=== PATIENT | female | born 1960 | race Caucasian/White ===

== ENCOUNTER 2019-08-01 06:27 | Day surgery (SDC) | payer OTHER ==
[~2019-08-01] VITALS: Ht 149.9 cm; Wt 61.7 kg
[2019-08-01] MEDS ORDERED: fentaNYL 0.05 MG/ML VIAL ONE (07:50)
[2019-08-01] MEDS ORDERED: MIDAZOLAM 2 MG/2 ML VIAL ONE (07:51)
[2019-08-01] MEDS ORDERED: LIDOCAINE 2% 100 MG/5 ML UJET TP ONE (07:53)
[2019-08-01] MEDS ORDERED: LIDOCAINE VISCOUS 2% 20 ML UDC ONE (07:55)
== END 2019-08-01 09:30 | disposition home or self-care (01) ==
LOC: MDS 06:27 → MMU 07:15 → MDS 09:30
PROVIDERS: ATTEND Internal Medicine Gastroenterology
DX: Z12.11 Encounter for screening for malignant neoplasm of colon (principal); R13.10 Dysphagia, unspecified; K21.9 Gastro-esophageal reflux disease without esophagitis; E78.00 Pure hypercholesterolemia, unspecified; M19.90 Unspecified osteoarthritis, unspecified site; Z90.710 Acquired absence of both cervix and uterus; Z79.899 Other long term (current) drug therapy
CPT/HCPCS: 43239; 88305; G0121; J2250; J3010; J7030

== ENCOUNTER 2019-10-31 07:22 | Day surgery (SDC) | payer OTHER, SELFPAY ==
[~2019-10-31] VITALS: Ht 149.9 cm; Wt 63.0 kg
[2019-10-31] MEDS ORDERED: fentaNYL 0.05 MG/ML VIAL ONE (08:59)
[2019-10-31] MEDS ORDERED: MIDAZOLAM 2 MG/2 ML VIAL ONE (09:00)
[2019-10-31] MEDS ORDERED: LIDOCAINE 2% 100 MG/5 ML UJET TP ONE (09:00)
[2019-10-31] MEDS ORDERED: fentaNYL 0.05 MG/ML VIAL IVP ONE (11:00)
[2019-10-31] MEDS ORDERED: MIDAZOLAM 2 MG/2 ML VIAL IVP ONE (11:00)
== END 2019-10-31 10:35 | disposition home or self-care (01) ==
LOC: MDS 07:22 → MMU 07:31 → MDS 10:35
PROVIDERS: ATTEND Internal Medicine Gastroenterology
DX: Z12.11 Encounter for screening for malignant neoplasm of colon (principal); Z11.59 Encounter for screening for other viral diseases; K64.8 Other hemorrhoids; E78.5 Hyperlipidemia, unspecified; Z79.899 Other long term (current) drug therapy; Z90.710 Acquired absence of both cervix and uterus; Z98.890 Other specified postprocedural states
CPT/HCPCS: 36415; 45378; J2250; J3010; U0003; C9803-CS